=== PATIENT | female | born 1960 | race Caucasian/White ===

== ENCOUNTER → 2019-09-29 | Outpatient (CLI) | payer BC ==
--- NOTE | 2019-09-29 13:24 | Diagnostic Imaging Report ---
EXAMINATION: US Abdomen limited. TECHNIQUE: Multiple real-time grayscale images were obtained over the right upper quadrant in various projections. HISTORY: Abdominal pain. COMPARISON: None available. FINDINGS: The liver is normal in size. The liver is normal in echogenicity. No focal lesions are seen. The portal vein is patent with hepatopedal flow. Gallbladder is normal without wall thickening or pericholecystic fluid. Sonographic Gramajo sign is negative. Common duct is obscured. There is no intrahepatic biliary ductal dilation. Pancreas is not well seen. The right kidney is normal without hydronephrosis. IMPRESSION: 1. Unremarkable right upper quadrant ultrasound. Dictated by: Dictated on workstation # [id number]
== END ==
LOC: RAD 09:18
PROVIDERS: ATTEND Nurse Practitioner Family
DX: R10.13 Epigastric pain (principal); R10.31 Right lower quadrant pain; R74.8 Abnormal levels of other serum enzymes; R11.0 Nausea
CPT/HCPCS: 76705

== ENCOUNTER → 2019-10-09 | Outpatient (CLI) | payer BC ==
[~2019-10-09] MED LIST: CATHETER FLUSH 10 ML SYR IV PRN
--- NOTE | 2019-10-09 14:11 | Diagnostic Imaging Report ---
INDICATION: Abdominal pain. Patient was administered 5.5 mCi technetium 99m Choletec intravenously and imaging over the abdomen was performed. After 60 minutes patient ingested 1 can of Ensure and gallbladder ejection fraction was calculated. There is homogeneous uptake of activity by the liver. Prompt excretion of activity is seen into the common duct and gallbladder. There is normal passage of activity into the small bowel. Gallbladder ejection fraction is normal at 42%. IMPRESSION: Normal HIDA scan and gallbladder ejection fraction. Dictated by: Dictated on workstation # [id number]
== END ==
LOC: CARD 11:08
PROVIDERS: ATTEND Internal Medicine
DX: R10.84 Generalized abdominal pain (principal)
CPT/HCPCS: 78227

== ENCOUNTER → 2021-02-17 | Outpatient (CLI) | payer BC, OTHER ==
--- NOTE | 2021-02-17 18:08 | Diagnostic Imaging Report ---
INDICATION: Left knee pain AP, oblique, and lateral views of the left knee are obtained. No fracture or acute bony abnormality is seen. There is no significant degenerative change. IMPRESSION: Negative left knee. Dictated by: Dictated on workstation # [id number]
== END ==
LOC: RAD 16:42
PROVIDERS: ATTEND Internal Medicine
DX: M25.562 Pain in left knee (principal)
CPT/HCPCS: 73562

== ENCOUNTER → 2021-08-04 | Outpatient (CLI) | payer OTHER ==
--- NOTE | 2021-08-04 09:22 | Diagnostic Imaging Report ---
INDICATION: Abdominal pain. PROCEDURE: Ultrasound abdomen complete. TECHNIQUE: Multiple real-time grayscale images were obtained of the abdomen in various projections. Liver parenchyma is homogeneous with normal echotexture. The portal vein is patent with hepatopetal flow. The gallbladder is clear but there appears to be some calcifications in the gallbladder wall suggesting a porcelain gallbladder. Common duct is obscured appreciably dilated. Pancreas is obscured by bowel gas. Spleen is not enlarged. Aorta and IVC appear normal. Right kidney measures 9.7 cm in length. Left kidney measures 9.8 cm length. There is a small cyst on the lateral margins of the left kidney measuring 12 mm in diameter. Survey of the right lower quadrant does not demonstrate any pathologic mass or fluid collection. 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 Dictated by: Dictated on workstation # [id number]
== END ==
LOC: RAD 08:00
PROVIDERS: ATTEND Internal Medicine
DX: R10.84 Generalized abdominal pain (principal)
CPT/HCPCS: 76700